=== PATIENT | female | born 1970 | race Two or more races ===

== ENCOUNTER 2022-04-01 17:21 | Emergency (ER) | payer OTHER ==
[~2022-04-01] VITALS: Ht 167.6 cm; Wt 47.2 kg
[2022-04-01] MEDS ORDERED: BACTRIM DS TAB1 EACH PO (21:12)
[2022-04-01] MEDS ORDERED: PYRIDIUM DS200 MG PO (21:12)
== END 2022-04-01 21:46 | disposition home or self-care (01) ==
LOC: ER 17:21
DX: N39.0 Urinary tract infection, site not specified (principal)